=== PATIENT | female | born 1935 | race Two or more races ===

== ENCOUNTER 2017-09-08 08:40 | Outpatient (CLI) | payer OTHER | END 2017-09-08 11:32 | disposition home or self-care (01) | LOC: SONOGRAMA 08:40 | DX: R59.0 Localized enlarged lymph nodes (principal) ==

== ENCOUNTER 2020-10-25 07:52 | Outpatient (CLI) | payer OTHER | END 2020-10-25 08:09 | disposition home or self-care (01) | LOC: TOM 07:52 | PROVIDERS: ATTEND Internal Medicine Gastroenterology | DX: K44.9 Diaphragmatic hernia without obstruction or gangrene (principal); Z12.11 Encounter for screening for malignant neoplasm of colon; D64.89 Other specified anemias; R19.5 Other fecal abnormalities ==